=== PATIENT | female | born 1960 | race African-American/Black ===

== ENCOUNTER 2021-07-04 13:51 | Observation (INO) ==
[2021-07-04] MEDS ORDERED: ALUM/MAG/SIMETH/LIDO VISC 1:1 30 ML BOTTLE PO STA (14:50)
[2021-07-04 15:36] LABS: Basophils # 0.1 10*3/uL (0.0-0.2); Basophils % 0.5 % (0.0-0.8); Eosinophils # 0.1 10*3/uL (0.0-0.87); Eosinophils % 0.6 % (0.00-10.9); Hematocrit 25.8 VOL% (35.7-47.0); Hemoglobin 7.8 GM/DL (12.0-16.0); Immature Granulocytes % 0.5 %; Immature Granulocytes Absolute 0.05 #; Lymphocytes # 1.6 10*3/uL (1.4-4.0); Lymphocytes % 14.7 % (21.3-54.2); Mean Corpuscular HGB Conc 30.2 GM/DL (32-36); Mean Corpuscular Volume 92.1 FL (87-102); Mean Platelet Volume 9.2 FL (9.6-12.0); Monocytes % 4.9 % (1.7-12.7); Neutrophils % 78.8 % (38.7-73.9); Platelet Count 508 T/CUMM (130-400); Red Cell Distribution Width 13.9 % (9.3-17.3); White Blood Count 10.9 T/CUMM (4-12)
[2021-07-04 15:44] LABS: Alanine Aminotransferase 20 U/L (13-56); Albumin 3.5 G/DL (3.4-5.0); Alkaline Phosphatase 99 U/L (45-117); Aspartate Amino Transferase 20 U/L (0-37); Bilirubin,Total < 0.39 MG/DL (0.20-1.00); Blood Urea Nitrogen 18 MG/DL (7-18); Calcium 9.2 MG/DL (8.5-10.1); Carbon Dioxide 26 MMOL/L (21-32); Estimated Glom Filtration Rate 57 ML/MIN; Glucose 105 MG/DL (74-106); Osmolality,Calculated 276.7 MOS/KG (273-304); Potassium 3.7 MMOL/L (3.5-5.1); Sodium 138 MMOL/L (136-145); Total Protein 9.2 G/DL (6.4-8.2)
[2021-07-04] MEDS ORDERED: PANTOPRAZOLE 40 MG VIAL IV STA (15:45)
[2021-07-04 15:46] LABS: PT Patient Result 11.1 SECS (10.5-12.0)
[2021-07-04] MEDS ORDERED: ACETAMINOPHEN 325 MG TABLET PO PRN (16:41)
[2021-07-04] MEDS ORDERED: ONDANSETRON 4 MG/2 ML VIAL IV PRN (16:41)
[2021-07-04] MEDS ORDERED: DEXTROSE 50% 25 GM/50 ML VIAL IV PRN (16:41)
[2021-07-04] MEDS ORDERED: GLUCAGON 1 MG VIAL IM PRN (16:41)
[2021-07-04] MEDS ORDERED: ZALEPLON 5 MG CAPSULE PO PRN (16:41)
[2021-07-04] MEDS ORDERED: PNEUMOCOCCAL VACCINE (23 VALENT) 0.5 ML VIAL IM ONE (18:51)
[2021-07-04] MEDS: DEXTROSE 5% NACL 0.9% 1,000 ML IV SCH (18:52)
[2021-07-04] MEDS: PANTOPRAZOLE 40 MG VIAL IV SCH (20:23)
[2021-07-04] MEDS ORDERED: AMITRIPTYLINE 50 MG TABLET PO SCH (21:00)
[2021-07-05 04:51] LABS: Basophils # 0.1 10*3/uL (0.0-0.2); Basophils % 0.8 % (0.0-0.8); Eosinophils # 0.2 10*3/uL (0.0-0.87); Eosinophils % 2.6 % (0.00-10.9); Hemoglobin 6.9 GM/DL (12.0-16.0); Immature Granulocytes % 0.3 %; Immature Granulocytes Absolute 0.02 #; Lymphocytes # 1.7 10*3/uL (1.4-4.0); Lymphocytes % 25.7 % (21.3-54.2); Mean Corpuscular Volume 93.5 FL (87-102); Mean Platelet Volume 8.6 FL (9.6-12.0); Monocytes % 8.1 % (1.7-12.7); Neutrophils % 62.5 % (38.7-73.9); Red Blood Count 2.46 MC/CUMM (3.8-5.5); Red Cell Distribution Width 13.7 % (9.3-17.3)
[2021-07-05 05:09] LABS: Calcium 8.5 MG/DL (8.5-10.1); Osmolality,Calculated 277.4 MOS/KG (273-304); Potassium 3.6 MMOL/L (3.5-5.1)
[2021-07-05 05:11] LABS: Platelet Count 397 T/CUMM (130-400)
[2021-07-05 05:12] LABS: White Blood Count 6.6 T/CUMM (4-12)
[2021-07-05 05:13] LABS: % Iron Saturation 7.6 % (18-50); Ferritin 13.6 ng/mL (8-252)
[2021-07-05 05:15] LABS: Folate > 24.00 NG/ML (5.38-24.0); Vitamin B12 1668 PG/ML (211-911)
[2021-07-05 05:49] LABS: Hypochromasia 1+; Microcytosis 1+; Platelet Estimate Normal
[2021-07-05 06:56] LABS: Sedimentation Rate-Westergren 135 MM/HR (0-30)
[2021-07-05] MEDS ORDERED: SODIUM CHLORIDE 0.9% 1,000 ML IV PRN (07:34)
[2021-07-05] MEDS: amLODIPine 10 MG TABLET PO SCH (09:07)
[2021-07-05] MEDS: MULTIVITAMIN (CENTRUM) TABLET PO SCH (09:07)
[2021-07-05] MEDS: PANTOPRAZOLE 40 MG VIAL IV SCH ×2 (09:08→22:00)
[2021-07-05] MEDS: DEXTROSE 5% NACL 0.9% 1,000 ML IV SCH (21:59)
[2021-07-06 06:13] LABS: Basophils # 0.1 10*3/uL (0.0-0.2); Basophils % 1.1 % (0.0-0.8); Eosinophils # 0.2 10*3/uL (0.0-0.87); Eosinophils % 4.1 % (0.00-10.9); Hematocrit 32.4 VOL% (35.7-47.0); Immature Granulocytes % 0.4 %; Immature Granulocytes Absolute 0.02 #; Lymphocytes # 1.4 10*3/uL (1.4-4.0); Lymphocytes % 25.4 % (21.3-54.2); Mean Corpuscular HGB Conc 31.8 GM/DL (32-36); Mean Corpuscular Volume 91.3 FL (87-102); Mean Platelet Volume 9.1 FL (9.6-12.0); Monocytes % 5.9 % (1.7-12.7); Neutrophils % 63.1 % (38.7-73.9); Platelet Count 428 T/CUMM (130-400); Red Cell Distribution Width 13.5 % (9.3-17.3); White Blood Count 5.6 T/CUMM (4-12)
[2021-07-06 06:20] LABS: Red Blood Count 3.55 MC/CUMM (3.8-5.5)
[2021-07-06 06:21] LABS: Hemoglobin 10.3 GM/DL (12.0-16.0)
[2021-07-06 06:33] LABS: Calcium 9.1 MG/DL (8.5-10.1); Osmolality,Calculated 272.7 MOS/KG (273-304); Potassium 3.7 MMOL/L (3.5-5.1)
[2021-07-06 08:25] VITALS: BP 127/73
[2021-07-06] MEDS ORDERED: BISACODYL 10 MG SUPP RECTAL ONE (09:16)
[2021-07-06] MEDS: amLODIPine 10 MG TABLET PO SCH (09:41)
[2021-07-06] MEDS: MULTIVITAMIN (CENTRUM) TABLET PO SCH (09:41)
[2021-07-06] MEDS: PANTOPRAZOLE 40 MG VIAL IV SCH (09:47)
[2021-07-06] MEDS: DEXTROSE 5% NACL 0.9% 1,000 ML IV SCH (09:47)
[2021-07-11 09:21] LABS: Hemoglobin A1 (Alkaline) 97.2 % (96.5-98.5); Hemoglobin A2 (Alkaline) 2.8 % (1.5-3.5)
== END 2021-07-06 11:32 | disposition home or self-care (01) ==
LOC: N.ED 13:51 → N.EDINP 13:51 → N.4E 17:26
PROVIDERS: ADMIT Hospitalist; ATTEND Hospitalist